=== PATIENT | male | born 1955 | race Caucasian/White ===

== ENCOUNTER 2017-09-20 10:18 | Outpatient (CLI) | payer OTHER ==
[2017-09-20 11:09] LABS: Anion Gap 16 mmol/L (10-20); BUN (Urea Nitrogen) 26 mg/dL (8.4-25.7); Calc. Creatinine Clearance 0 mL/min (70-130); Calcium 9.9 mg/dL (7.8-10.44); Carbon Dioxide 23 mmol/L (23-31); Chloride 106 mmol/L (98-107); Estimated GFR-MDRD 62; Glucose 92 mg/dL (80-115); Potassium 3.9 mmol/L (3.5-5.1); Sodium 141 mmol/L (136-145)
[2017-09-20 12:13] LABS: Hemoglobin 13.1 g/dL (14.0-18.0)
[2017-09-20 17:18] LABS: Iron 50 ug/dL (65-175); Iron Binding Capacity, Total 346 mcg/dL (261-462)
[2017-09-20 18:41] LABS: Creatinine, Urine 87.27 mg/dL (63-166)
== END 2017-09-20 10:19 | disposition home or self-care (01) ==
LOC: MADLAB 10:18
PROVIDERS: ATTEND Internal Medicine Nephrology
DX: N18.3 Chronic kidney disease, stage 3 (moderate) (principal); D63.1 Anemia in chronic kidney disease; R80.9 Proteinuria, unspecified; D50.9 Iron deficiency anemia, unspecified
CPT/HCPCS: 36415; 80048; 82570; 83540; 83550; 84156; 85014; 85018